=== PATIENT | female | born 1945 | race Two or more races ===

== ENCOUNTER 2023-07-01 05:20 | Day surgery (SDC) | payer OTHER ==
[2023-06-22 10:47] LABS: HEMATOCRIT 34.6 % (36.0-45.00); HEMOGLOBIN 11.6 g/dL (12.0-15.00); MEAN CELL VOLUME 91.5 fL (80.00-100.00); MEAN CORPUSCULAR HEMOGLOBIN 30.8 pg (27.00-32.0); MEAN CORPUSCULAR HGB CONC 33.6 g/dl (32.0-36.0); PLATELET COUNT 254 K/uL (150-450); RED BLOOD COUNT 3.79 M/uL (4.00-6.00); RED CELL DISTRIBUTION WIDTH 15.2 % (11.5-14.5); URINE APPEARANCE Clear; URINE BILIRRUBIN Negative (NEGATIVE); URINE BLOOD Negative; URINE COLOR Yellow; URINE GLUCOSE Negative (NEGATIVE); URINE LEUKOCYTE Negative; URINE NITRATE Negative; URINE PROTEIN Negative (NEGATIVE); URINE UROBILINOGEN 0.2 E.U./dl
[2023-06-22 10:52] LABS: URINE WBC 5.2 uL (0.0-23.2)
[2023-06-22 10:55] LABS: URINE EPITHELIAL CELLS 0.6 uL (0.0-38.8); URINE RBC 1.7 uL (0.0-20.8)
[2023-06-22 11:15] LABS: INR < 0.93; PARTIAL THROMBOPLASTIN TIME 27.6 SECONDS (22.0-34.0); PROTHROMBIN TIME 9.5 SECONDS (9.0-11.5)
[2023-06-22 11:41] LABS: ALBUMIN 3.4 gm/dL (3.4-5.0); BILIRUBIN TOTAL 0.28 mg/dL (0.3-1.2); CALCIUM 9.3 mg/dL (8.5-10.1); CREATININE SERUM 0.84 mg/dL (0.55-1.02); GFR 65.57; POTASSIUM 4.7 mEq/L (3.5-5.1); TOTAL PROTEIN 6.4 gm/dL (6.4-8.2); TSH 3.22 uIU/mL (0.358-3.74)
[~2023-07-01] VITALS: Ht 160 cm; Wt 73.0 kg
[~2023-07-01 05:20] MED LIST: COZAAR100 MG PO; METFORMIN HCL1000 M2 PO; NORVASC2.5 MG PO; SYNTHROID88 MCG PO; ZOCOR20 MG PO
[2023-07-01] MEDS ORDERED: NAPR500T14 PO (08:35)
[2023-07-01] MEDS ORDERED: MORGIDOX100 MG PO (08:35)
== END 2023-07-01 11:55 | disposition home or self-care (01) ==
LOC: CIR.AMB 05:20
PROVIDERS: ATTEND Obstetrics & Gynecology
DX: N84.0 Polyp of corpus uteri (principal); N95.0 Postmenopausal bleeding; D25.0 Submucous leiomyoma of uterus; Z88.6 Allergy status to analgesic agent